=== PATIENT | female | born 1930 | race Caucasian/White ===

== ENCOUNTER 2018-06-20 17:37 | Emergency (ER) | payer MEDICARE, OTHER ==
[2018-06-20 18:24] LABS: #Basophils 0.1 thou/uL (0.0-0.2); #Eosinphils 0.3 thou/uL (0.0-0.7); #Lymphocytes 5.4 thou/uL (1.20-3.40); #Monocytes 1.4 thou/uL (0.11-0.59); #Neutrophils 3.8 thou/uL (1.40-6.50); %Basophils 0.8 % (0.0-1.0); %Eosinophils 2.7 % (0.0-10.0); %Lymphocytes 49.5 % (21.0-51.0); %Monocytes 12.2 % (0.0-10.0); %Neutrophils 34.8 % (42.0-75.0); Hemoglobin 13.7 g/dL (12.0-16.0); Mean Corpuscular HGB CONC 32.5 g/dL (32.0-36.0); Mean Corpuscular Hemoglobin 29.5 pg (27.0-31.0); Mean Corpuscular Volume 90.9 fL (78.0-98.0); Mean Platelet Volume 9.7 fL (7.4-10.4); Platelet Count 229 thou/uL (130-400); RBC Distribution Width 12.4 % (11.5-14.5); Red Blood Cell (RBC) Count 4.65 mill/uL (4.20-5.40)
[2018-06-20 18:37] LABS: ALT (SGPT) 18 U/L (8-55); AST (SGOT) 22 U/L (5-34); Albumin 4.5 g/dL (3.4-4.8); Alkaline Phosphatase 61 U/L (40-150); Anion Gap 14 mmol/L (10-20); BUN (Urea Nitrogen) 16 mg/dL (9.8-20.1); Bilirubin, Total 0.5 mg/dL (0.2-1.2); Calc. Creatinine Clearance 0 mL/min (70-130); Calcium 10.1 mg/dL (7.8-10.44); Carbon Dioxide 26 mmol/L (23-31); Chloride 106 mmol/L (98-107); Estimated GFR-MDRD 61; Globulin 3.2 g/dL (2.4-3.5); Glucose 97 mg/dL (83-110); Potassium 3.5 mmol/L (3.5-5.1); Protein, Total 7.7 g/dL (6.0-8.3); Sodium 142 mmol/L (136-145)
[2018-06-20 18:39] LABS: CKMB 2.5 ng/mL (0-6.6); Troponin I Less than 0.010 ng/mL (< 0.028)
[2018-06-20 18:45] LABS: Clarity Clear (Clear)
[2018-06-20 18:46] LABS: Glucose, Urine (Dipstick) Negative (Negative); Leukocyte Small (Negative); Nitrite Negative (Negative); Protein, Urine (Dipstick) Negative (Neg-Trace); Specific Gravity, Urine 1.015 (1.005-1.030)
[2018-06-20 18:47] LABS: Bilirubin Negative (Negative); Blood, Urine Negative (Negative); Urobilinogen 0.2 mg/dL (0.2-1.0)
[2018-06-20 18:48] LABS: Bacteria/HPF None Seen HPF (None Seen); Crystals/HPF None Seen HPF (Negative); Hyaline Casts/LPF NONE SEEN LPF (0-3 Hyaline); Other Casts/LPF None Seen LPF (0-3 Hyaline); Oval Fat Bodies/HPF None Seen HPF (None Seen); RBC/HPF None Seen HPF (0-3); Renal Epithelial None Seen HPF (0-3); Sperm/HPF None Seen HPF (None Seen); Squamous Epithelial None Seen HPF (0-3); Transitional Epithelial NONE SEEN HPF (0-3); Trichomonas/HPF None Seen HPF (None Seen); WBC/HPF 0-3 HPF (0-3); Yeast-All Forms None Seen HPF (None Seen)
[2018-06-20] MEDS ORDERED: cloNIDine 0.1 MG TAB ONE (19:07)
== END 2018-06-20 20:00 | disposition home or self-care (01) ==
LOC: BURERS 17:37
DX: I10 Essential (primary) hypertension (principal); K58.9 Irritable bowel syndrome, unspecified; Z79.899 Other long term (current) drug therapy
CPT/HCPCS: 80053; 81003; 81015; 82553; 84443; 84484; 85025; 93005; 94760

== ENCOUNTER 2018-09-14 15:09 | Outpatient (CLI) | payer MEDICARE, OTHER ==
--- NOTE | 2018-09-14 16:32 | ULT ---
RENAL SONOGRAM: 09/14/18 HISTORY: Hypertension. FINDINGS: Right kidney is 8.6 cm and left is 9.0 cm. Each has a normal sonographic appearance without evidence of mass, stone, or hydronephrosis. Urinary bladder is completely decompressed. IMPRESSION: No evidence of urinary tract obstruction. No significant abnormalities demonstrated. POS: [facility]
== END 2018-09-14 15:10 | disposition home or self-care (01) ==
LOC: BURULT 15:09
PROVIDERS: ATTEND Family Medicine
DX: I10 Essential (primary) hypertension (principal)
CPT/HCPCS: 76770

== ENCOUNTER 2020-04-19 19:08 | Emergency (ER) | payer MEDICARE, OTHER ==
[2020-04-19] MEDS ORDERED: Silver Sulfadiazine 50 GM TUBE ONE (19:49)
[2020-04-19] MEDS ORDERED: Ondansetron ODT 4 MG TAB ONE (19:49)
[2020-04-19] MEDS ORDERED: Adacel (T-DAP) 0.5 ML SYRINGE ONE (19:49)
[2020-04-19] MEDS ORDERED: Ibuprofen 200 MG TAB ONE (19:49)
== END 2020-04-19 20:20 | disposition home or self-care (01) ==
LOC: BURERS 19:08
DX: T25.212A Burn of second degree of left ankle, initial encounter (principal); T23.101A Burn of first degree of right hand, unspecified site, initial encounter; T31.0 Burns involving less than 10% of body surface; I10 Essential (primary) hypertension; Z79.899 Other long term (current) drug therapy; X10.1XXA Contact with hot food, initial encounter
CPT/HCPCS: 16020; 90715; Q0162